=== PATIENT | male | born 2000 | race Caucasian/White ===

== ENCOUNTER 2021-10-10 09:48 | Emergency (ER) | payer BC, SELFPAY ==
--- NOTE | ~2021-10-10 | US_ITS ---
EXAMINATION: US scrotum doppler DATE: 10/10/2021 11:19 INDICATION: Left testicular pain. TECHNIQUE: Grayscale and Doppler ultrasound images of the testes were obtained. COMPARISON: None. FINDINGS: The right testis measures 4.8 x 2.5 x 3.8 cm. The left testis measures 4.6 x 2.6 x 4.0 cm. There is normal vascular flow to both testes. The right epididymis is normal with normal vascular chelita w. The left epididymis is normal with normal vascular flow. There is no varicocele or hydrocele. IMPRESSION: 1. Normal testes. Reviewed, dictated and finalized at location A. IMPRESSION: 1. Normal testes.
[2021-10-10 09:55] VITALS: BP 171/80; PULSE 86; RESP 16; TEMP 36.6; O2SAT 98
[2021-10-10 10:07] VITALS: O2SAT 98
[2021-10-10 10:26] VITALS: O2SAT 98
--- NOTE | 2021-10-10 10:30 | PC.NURSE ---
Dr. Loredo at bedside to assess pt
--- NOTE | 2021-10-10 10:34 | ED.MALEGU ---
HPI - Male Genitourinary General Chief complaint: Urogenital-Male Stated complaint: Groin pain, L Time Seen by Provider: 10/10/21 10:21 Source: patient Mode of arrival: ambulatory Limitations: no limitations History of Present Illness HPI Narrative: 21 years old white male presents was pain of the left testicle. Patient denies any trauma. Patient works at [employer] with a lot of lifting and pulling. Patient denies any fever, chills, nausea, vomiting, penile discharge, sexual activities. Last sexual activity over 1 year ago. Review of Systems Review of Systems: CONSTITUTIONAL: Denies fever, chills, or sweats. EYES: Denies visual changes, redness, or discharge. ENT: Denies rhinorrhea, congestion, sore throat, or otalgia. CARDIOVASCULAR: Denies chest pain, palpitations, or edema. RESPIRATORY: Denies cough or dyspnea. GASTROINTESTINAL: Denies abdominal pain, nausea, vomiting, or diarrhea. GENITOURINARY: Denies dysuria or hematuria. SKIN: Denies rash or itching. MUSCULOSKELETAL: Denies back pain, joint pain, or myalgia. NEUROLOGIC: Denies headache, numbness, or weakness. PSYCHIATRIC: Denies anxiety or depression. Exam Narrative: General appearance: Well-developed, well-nourished Skin: Normal color Head: Normocephalic, nontraumatic Eyes: Clear conjunctiva ENT: Oropharynx normal, ears normal, nose normal Neck: Supple, nontender Chest and respiratory: Airway patent, no respiratory distress, no accessory muscle use Heart: Regular rate/rhythm Abdomen: Soft, nontender, no organomegaly, quiet bowel sounds Vascular: Normal peripheral pulses, normal capillary refill. Musculoskeletal: Normal range of motion, nontender back Neurologic: Alert and oriented ?3, AUTOPSY ASSISTANT is normal as tested, no gross motor deficit : Testes: testicular tenderness (Mild diffuse left testicular tenderness, slightly swollen compared to the r) Course Course Emergency Course: Stable Work-up did not show anything significant to explain patient condition. Patient started working at [employer] with a lot of lifting recently. Muscular strain/sprain is my concern. Patient will be discharged on anti-inflammatory and muscle relaxants. Vital Signs Vital signs: Vital Signs Temperature 36.6 C 10/10/21 09:55 Pulse Rate 86 10/10/21 09:55 Respiratory Rate 16 10/10/21 09:55 Blood Pressure 171/80 H 03/17/22 09:55 Pulse Oximetry 98 10/10/21 09:55 Temperature 36.6 C 10/10/21 09:55 Pulse Rate 86 10/10/21 09:55 Respiratory Rate 16 10/10/21 09:55 Blood Pressure 171/80 H 10/10/21 09:55 Pulse Oximetry 98 10/10/21 10:26 MDM - Male Genitourinary Imaging Data Radiologist's impression: Impressions Scrotum Ultrasound 10/10/21 11:27 IMPRESSION: 1. Normal testes. Discharge Plan Discharge Clinical Impression: Left testicular pain, Muscle strain Patient Disposition: Home, Self-Care Condition: Stable Instructions: Antibiotic Form, Groin Strain (ED), Testicle Pain (ED) Additional Instructions: Return if symptoms are worsening , call your family physician for appointment, take Tylenol as as needed for aches and pain, continue home medications. Prescriptions: New naproxen [Naprosyn] 500 mg tablet 500 mg PO BID PRN (Reason: pain) Qty: 14 RF: 0 cyclobenzaprine 10 mg tablet 10 mg PO TID PRN (Reason: muscle spasm) Qty: 20 RF: 0 Follow-up/Referrals: PHYSICIAN NOT ON STAFF,NONSTAFF [Primary Care Provider] - Ganesh Gandara MD [Physician] - 10/11/21
--- NOTE | 2021-10-10 10:41 | PC.NURSE ---
Patient transported off unit to US.
--- NOTE | 2021-10-10 11:07 | PC.NURSE ---
Patient report given to EMMETT Bonner. All questions answered and care of patient transferred.
--- NOTE | 2021-10-10 11:09 | PC.NURSE ---
Care assumed of patient at this time. Pt is in Ultrasound.
[2021-10-10 12:05] VITALS: BP 138/74; PULSE 56; RESP 18; O2SAT 99
== END 2021-10-10 12:11 | disposition home or self-care (01) ==
PROVIDERS: Emergency Provider Emergency Medicine
DX: S39.011A Strain of muscle, fascia and tendon of abdomen, initial encounter (principal); X50.0XXA Overexertion from strenuous movement or load, initial encounter
CPT/HCPCS: 76870; 93976; 99284

== ENCOUNTER 2022-03-13 10:13 | Emergency (ER) | payer BC, SELFPAY ==
--- NOTE | 2022-03-13 10:27 | ED.ANIMALBIT ---
HPI - Animal Bite General Chief Complaint: Animal Bite Stated Complaint: R HAND ANIMAL BITE Time Seen by Provider: 03/13/22 10:20 Source: patient and RN notes reviewed History of Present Illness HPI narrative: Patient is a 21-year-old male who presents the urgent care with complaints of an animal bite to the right index finger. Patient states that the bite did not break the skin. States that he was throwing away something in the dumpster at a bar and saw that a raccoon was in the dumpster. Patient states that he held something out to try to help the raccoon get out of the dumpster and he attempted to latch onto his right index finger. Patient states that this happened last night. Denies of any bleeding with the initial bite. States that as mother is a nurse and was concerned with rabies. Patient denies any fevers, nausea, vomiting. No other acute complaints. Patient aware of the plan of care. Some parts of this dictation were generated by voice recognition software and may contain typographical and/or grammatical inaccuracies. Related Data Allergies Allergy/AdvReac Type Severity Reaction Status Date / Time No Known Allergies Allergy Verified 03/13/22 10:34 Review of Systems Review of Systems: CONSTITUTIONAL: Denies fever, chills, or sweats. EYES: Denies visual changes, redness, or discharge. ENT: Denies rhinorrhea, congestion, sore throat, or otalgia. CARDIOVASCULAR: Denies chest pain, palpitations, or edema. RESPIRATORY: Denies cough or dyspnea. GASTROINTESTINAL: Denies abdominal pain, nausea, vomiting, or diarrhea. GENITOURINARY: Denies dysuria or hematuria. SKIN: Reports of a raccoon bite to the right index MUSCULOSKELETAL: Denies back pain, joint pain, or myalgia. NEUROLOGIC: Denies headache, numbness, or weakness. All other systems reviewed are negative, except as documented in HPI. PMFSH Comments At the time of my signature, I reviewed and agree with the nursing past medical, surgical, social, and family history. There is no relevant family history pertinent to the patient complaint. Exam Narrative: GENERAL: This is a well-nourished, well-developed patient, in no apparent distress. HEAD: normocephalic, atraumatic. EYES: PERRL. Sclera clear/white. Vision is grossly intact. EARS: External ears normal NOSE: External nose normal with no obvious nasal discharge, nares without redness, no rhinorrhea. THROAT: Mucous membranes moist NECK: Neck supple SKIN: No bite wound noted to the right index finger. No erythema or edema noted. Warm, intact with no suspicious lesions or rash, good texture and turgor. NEURO: awake, alert, and oriented to person, place and time. There were no obvious focal neurologic abnormalities. EXTREMITIES: No clubbing, cyanosis, or edema. Positive strong right radial pulse with capillary refill less than 2 seconds without any obvious infection or deformity. Course Course Level of Care: Express Care Visit Vital Signs Vital signs: Vital Signs Temperature 98.7 F 03/13/22 10:35 Pulse Rate 85 03/13/22 10:35 Respiratory Rate 20 03/13/22 10:35 Blood Pressure 149/103 H 03/13/22 10:35 Pulse Oximetry 98 03/13/22 10:35 Temperature 98.7 F 03/13/22 10:35 Pulse Rate 85 03/13/22 10:35 Respiratory Rate 20 03/13/22 10:35 Blood Pressure 149/103 H 03/13/22 10:35 Pulse Oximetry 98 03/13/22 10:35 Reviewed-patient is informed that they may have pre-hypertension or hypertension based on a blood pressure reading in the department. I recommend the patient call the primary care provider listed on their discharge instructions or a physician of their choice this week to arrange follow-up for further evaluation of possible pre-hypertension or hypertension. MDM - Animal Bite MDM Narrative Medical decision making narrative: Discussed rabies vaccinations and blood work to the patient. Call the health department and they refer patients to the emergency room. Our facility does also not
[2022-03-13 10:35] VITALS: BP 149/103; PULSE 85; RESP 20; TEMP 37.1; O2SAT 98
== END 2022-03-13 11:05 | disposition home or self-care (01) ==
PROVIDERS: Emergency Provider Nurse Practitioner Family
DX: S61.250A Open bite of right index finger without damage to nail, initial encounter (principal); W55.51XA Bitten by raccoon, initial encounter
CPT/HCPCS: 99211; G0463